=== PATIENT | male | born 1945 | race African-American/Black ===

== ENCOUNTER 2020-03-16 14:30 | Observation (INO) | payer MEDICARE, SELFPAY ==
[2020-03-16] VITALS (8 sets, daily range): BP systolic 138–179; BP diastolic 56–67; PULSE 59–82; RESP 16–19; TEMP 36.1–36.4; O2SAT 98–100; BMI 30.1
--- NOTE | ~2020-03-16 | MR_ITS ---
EXAMINATION: MR brain/brain stem wo con DATE: 03/17/2020 07:09 INDICATION: Slurred speech. TECHNIQUE: Magnetic resonance imaging (MRI) of the brain and brainstem was performed without intraven ous contrast. Sequences included sagittal and axial T1-weighted SE, axial diffusion-weighted FS SE, a xial T2*-weighted GRE, axial T2-weighted FLAIR, and axial T2-weighted FSE. Apparent diffusion coeffic ient (ADC) maps were created. COMPARISON: Head CT and brain CT angiogram dated 03/16/2020 FINDINGS: There are no areas of restricted diffusion to suggest acute infarction. There are couple small old in farcts in the hardy, tiny on the right and small on the left. A few additional small old lacunar infar cts in the left lentiform nucleus and the right frontal and left parietal centrum semiovale. No intra cranial hemorrhage or abnormal intracranial mass lesion. There are scattered areas of nonspecific inc reased T2-weighted signal intensity in the cerebral white matter, predominantly involving the deep an d periventricular white matter which is within normal limits for age. There are no intraparenchymal s ignal abnormalities seen on the other pulse sequences. Symmetric prominence of the sulci and ventricl es consistent with mild age-appropriate diffuse cerebral volume loss. There are no abnormal extra-axi al fluid collections. Absent flow void in the right vertebral artery on T2-weighted sequences consist ent with thrombosis or slow flow. Correlation with prior CT angiogram demonstrates a high-grade steno sis of the right vertebral artery distal to the takeoff of the right inferior cerebellar artery with only a hairline contrast opacified lumen. Flow voids are seen in the remaining large intracranial art eries. Again noted is some plaque in the supraclinoid portion of the right internal carotid artery. V isualized orbits and soft tissues are unremarkable. IMPRESSION: 1. No acute infarct or other acute intracranial process. 2. Small old infarcts in the hardy, left basal ganglia and bilateral centrum semiovale. 3. Age-related changes including mild volume loss and scattered periventricular predominant nonspecif ic white matter T2 hyperintensity consistent with chronic small vessel ischemic disease. 4. Cerebral atherosclerosis with absent flow void in the right vertebral artery consistent with the h igh-grade stenosis evident on prior CT angiogram. Reviewed, dictated and finalized at location A. IMPRESSION: 1. No acute infarct or other acute intracranial process. 2. Small old infarcts in the hardy, left basal ganglia and bilateral centrum irma iovale. 3. Age-related changes including mild volume loss and scattered periventricular predominant nonspecific white matter T2 hyperintensity consistent with chronic small vessel ischemic disease. 4. Cerebral atherosclerosis with absent flow void in the right vertebral artery consistent with the high-grade stenosis evident on prior CT angiogram.
--- NOTE | ~2020-03-16 | CT_ITS ---
EXAMINATION: CTA BRAIN/CAROTID DATE: 03/16/2020 14:55 INDICATION: Slurred speech. Stroke protocol. TECHNIQUE: Computed tomographic angiography (CTA) of the head and neck was performed with 100 mL Omni paque-350 intravenous contrast. Multiplanar reconstructions and maximum intensity projection 3D-recon structions of the carotid arteries and of the intracranial arteries were created by the technologist on a separate workstation. Precontrast CT of the head was also obtained. Automated exposure control and iterative reconstruction technique were employed.The dose-length product was 1797.49 mGy-cm. COMPARISON: None. FINDINGS: Carotid arteries: Atherosclerotic calcifications without hemodynamically significant stenosis along the normal caliber aortic arch. There is 40% stenosis of the right carotid bulb relative to normal distal artery lumen d iameter (NASCET criteria). There is 40% stenosis of the left carotid bulb relative to normal distal a rtery lumen diameter. High-grade stenosis at the origin of the right vertebral artery. Left vertebral artery is dominant. Head CT: Small old lacunar infarct at the left hardy. No acute intracranial hemorrhage, acute infarction or abn ormal extra axial fluid collection. There is moderate scattered white matter hypoattenuation consiste nt with chronic small vessel ischemic disease. Symmetric prominence of the sulci and ventricles consi stent with mild age-appropriate diffuse cerebral volume loss. Ventricles are normal and symmetric. No mass/mass effect. Mucosal thickening with partial opacification of a left ethmoid air cell. The orbi ts and mastoid air cells are normal. Intracranial calcified cerebral atherosclerosis is noted at the carotid siphons and along the intracranial right vertebral artery. Intracranial arteries Left vertebral artery is dominant. There is high-grade stenosis of the right vertebral artery distal to the takeoff of the right inferior cerebellar artery. There is no hemodynamically significant steno sis in the left vertebral or basilar arteries. There is 60% stenosis at the lacerum segment of the le ft internal carotid artery and and 40% stenosis at the supraclinoid segment of the right internal car otid artery. There are no aneurysms identified. Both A1 and P1 segments are patent. There is a paten t anterior cerebral communicating artery. Cerebral arterial arborization appears symmetric. IMPRESSION: 1. Small old left pontine infarct. No acute intracranial process. Dr. Palomino discussed these findin gs with Dr. Haas at 3:02 PM. 2. 40% stenosis of the of both the right and left carotid bulbs relative to normal distal artery lume n diameter (NASCET criteria). 3. High-grade stenoses at the proximal extracranial right vertebral artery and distal intracranial po rtion of the right vertebral artery. 4. 40% stenosis of the supraclinoid segment of the right internal carotid artery and 60% stenosis at the lacerum segment of the left internal carotid artery. Reviewed, dictated and finalized at location A. IMPRESSION: 1. Small old left pontine infarct. No acute intracranial process. Dr. Palomino discussed these findings with Dr. Haas at 3:02 PM. 2. 40% stenosis of the of both the right and left carotid bulbs relative to nor mal distal artery lumen diameter (NASCET criteria). 3. High-grade stenoses at the proximal extracranial right vertebral artery and distal intracranial portion of the right vertebral artery. 4. 40% stenosis of the supraclinoid segment of the right internal carotid arter y and 60% stenosis at the lacerum segment of the left internal carotid artery.
--- NOTE | 2020-03-16 15:22 | ED.NEUROSD ---
HPI - Neuro Symptoms/Deficit General Chief Complaint: Suspected CVA Stated Complaint: POSS CVA Time Seen by Provider: 03/16/20 14:31 Source: patient and family History of Present Illness HPI Narrative: Patient is brought in by EMS for slurred speech, right facial droop and difficulty with eating. states the patient appeared at baseline around 9:00 AM this morning. They went to [facility] and she noticed he has slurred speech, right facial droop. He took a long time to eat a sandwich. Patient has previous stroke and right hemiparesis. However, states that all these symptoms are new. There is no alleviating or exacerbating factor. Patient states that he feels fine and has no additional complaint. Related Data Home Medications Medication Instructions Recorded Confirmed allopurinol 03/16/20 amiodarone 200 mg 03/16/20 amlodipine 03/16/20 apixaban [Eliquis] mg 03/16/20 furosemide 03/16/20 metoprolol succinate PO 03/16/20 Allergies Allergy/AdvReac Type Severity Reaction Status Date / Time No Known Allergies Allergy Verified 03/16/20 16:28 Review of Systems Constitutional: Constitutional: Denies chills, Denies fever(s), Denies headache(s) and Denies weakness Eyes: Eyes: Denies blurry vision ENT: Denies headache(s) and Denies neck pain Cardiovascular: Cardiovascular: Denies chest pain and Denies dyspnea Respiratory: Respiratory: Denies cough and Denies dyspnea Gastrointestinal: Gastrointestinal: Denies abdominal pain, Denies diarrhea, Denies nausea and Denies vomiting Genitourinary: Genitourinary: Denies hematuria and Denies dysuria Musculoskeletal: Musculoskeletal: Denies back pain and Denies neck pain Neurologic: Reports as per HPI, Denies headache(s), Reports focal weakness (chronic right sided weakness) and Denies weakness Comments: +facial droop and slurred speech [facility] Family History Family History (Updated 03/16/20 @ 19:01 by Cielo Johnson RN) Father Acute myocardial infarction Congestive heart failure Diabetes mellitus Hypertension Sibling Acute myocardial infarction Hypertension Sibling Diabetes mellitus Hypertension Sibling Diabetes mellitus Hypertension Sibling Hypertension Sibling Hypertension Sibling Hypertension Mother Hypertension Social History Social History Smoking packs per day: 1 Smoking cigarettes per day: 20.0 Years smoked: 20 Smoking pack-years: 20.00 Smoking status: Former smoker Tobacco type: cigarettes Alcohol intake: former Substance use: never Spiritual care concerns: No Exam Const: General: no acute distress and well developed Orientation/consciousness: oriented to person, oriented to place, oriented to time and patient oriented x3 HENMT: Head: normocephalic Ears: external ears normal General nose exam: Normal external nose present Eyes: General: appearance normal, both eyes and all related structures Conjunctivae: conjunctivae normal Neck: Neck: normal visual inspection and full ROM Chest: Chest palpation & inspection: normal inspection of the chest and no tenderness Resp: Effort & Inspection: normal respiratory effort Auscultation: clear to auscultation bilaterally Cardio: Rate: regular rate Rhythm: abnormal rhythm irregularly irregular GI: GI Palp: No abdominal tenderness and Yes Soft to palpation Skin: General skin exam: normal color and turgor normal Neuro: General: oriented to person, oriented to place, oriented to time and patient oriented x3 Cranial nerves: Yes Other cranial nerve findings present (mild right facial droop) Cognition (Neuro): normal cognition Speech: dysarthria Motor exam (neuro): Other motor observations present (right sided weakness) Sensory Exam: normal sensation Coordination: betgiv-ic-axvg test normal Extrem: General: full ROM and no pedal edema Other: brace on right leg Psych: Appearance: grossly normal
--- NOTE | 2020-03-16 15:23 | ECG_ITS ---
Measurements Intervals [place] Rate: 69 P: 53 HI: 209 QRS: -52 QRSD: 114 T: 53 QT: 414 QTc: 446 Interpretive Statements SINUS RHYTHM ATRIAL PREMATURE COMPLEXES BORDERLINE AV CONDUCTION DELAY LEFT ANTERIOR FASCICULAR BLOCK LEFT VENTRICULAR HYPERTROPHY AND ST-T CHANGE BORDERLINE T WAVE ABNORMALITY- ANTEROLAT/INF LEADS BASELINE ARTIFACT- I, II, AVR, AVL, AVF, V1-V6 ABNORMAL ECG Electronically Signed On 03-16-2020 18:57:27 CDT by Mik Acuña D.O.
[2020-03-16 16:01] LABS: Basophils Percent Auto 0.4 % (0.2-1.2); Eosinophils Absolute Auto 0.1 K/mm3 (0-0.3); Eosinophils Percent Auto 1.3 % (0-4.4); Hemoglobin 8.8 g/dL (14.0-18.0); Immature Granulocyte Absolute 0.03 K/mm3 (0.00-0.031); Immature Granulocyte Percent A 0.6 % (0-0.5); Lymphocytes Absolute Auto 0.95 K/mm3 (0.9-3.2); Mean Corpuscular HGB Conc 31.4 g/dl (32-36); Mean Corpuscular Hemoglobin 27.1 pg (26-34); Mean Corpuscular Volume 86.2 fl (80-100); Monocytes Absolute Auto 0.4 K/mm3 (0.1-0.6); Monocytes Percent Auto 7.6 % (2.6-8.5); Neutrophils Absolute Auto 3.3 K/mm3 (1.3-6.7); Neutrophils Percent Auto 70.1 % (45.5-73.1); Platelet Count Result 218 k/mm3 (150-375); Red Blood Count 3.25 M/mm3 (4.6-6.20); Red Cell Distribution Width 15.3 % (11.5-14.5); White Blood Count 4.7 K/mm3 (4.5-10.0)
[2020-03-16 16:12] LABS: INR 1.4; Prothrombin Time 17.2 Seconds (11.1-14.7)
[2020-03-16 16:13] LABS: Partial Thromboplastin Time 35.2 SECONDS (22.3-36.8)
[2020-03-16 16:14] LABS: Alanine Aminotransferase 20 U/L (4-50); Albumin Level 3.3 g/dL (3.5-5.1); Alkaline Phosphatase 97 U/L (38-126); Aspartate Amino Transferase 22 U/L (17-59); Bilirubin,Total 0.4 mg/dL (0.2-1.3); Blood Urea Nitrogen 40 mg/dL (9-20); Calcium 8.4 mg/dL (8.4-10.2); Carbon Dioxide 17 mmol/L (22-30); Chloride 113 mmol/L (98-107); Estimated Glomerular Filt Rate 36; Glucose 197 mg/dL (75-110); Potassium 3.7 mmol/L (3.4-5.0); Sodium 140 mmol/L (137-145)
[2020-03-16] MEDS: SODIUM CHLORIDE 0.9% IV 1,000 ML 999 ML IV CONT (16:21)
--- NOTE | 2020-03-16 18:38 | PC.NURSE ---
This patient, Bhavana West, was admitted to Medical Room 250-. Patient/family oriented to hospital policies and general routines including ID bracelet, bed and alarms, visiting hours, pain management, procedures, bathroom and other care routines, personal items, smoking policy, room service/diet, and visiting hours. Valuables list has been completed. Information on how to activate the Rapid Response Team has been discussed. Patient/Family are encouraged to report perceived risks to care and to ask questions if they do not understand what they are told or what they should do.
[2020-03-16 19:03] LABS: Glucose Point of Care 117 (65-105)
[2020-03-17] VITALS (7 sets, daily range): BP systolic 168–186; BP diastolic 76–78; PULSE 65–86; RESP 16–20; TEMP 36.1–36.2; O2SAT 100
[2020-03-17] MEDS: allopurinoL 300 MG TABLET PO (09:42)
[2020-03-17] MEDS: ASPIRIN 81 MG ENTERIC TABLET PO (09:42)
[2020-03-17] MEDS: AMIODARONE HCL 200 MG TABLET PO (09:42)
[2020-03-17] MEDS: APIXABAN 5 MG TABLET PO (09:42)
[2020-03-17 10:09] LABS: Blood Urea Nitrogen 25 mg/dL (9-20); Calcium 8.8 mg/dL (8.4-10.2); Carbon Dioxide 19 mmol/L (22-30); Chloride 114 mmol/L (98-107); Estimated CRCL calculation 37 ml/min; Estimated Glomerular Filt Rate 48; Glucose 175 mg/dL (75-110); Potassium 4.5 mmol/L (3.4-5.0); Sodium 137 mmol/L (137-145)
[2020-03-17 10:14] LABS: Transferrin 228 mg/dL (206-381)
[2020-03-17 10:47] LABS: Iron 38 ug/dL (49-181)
[2020-03-17 10:56] LABS: Percent Iron Saturation 12 % (20-50)
--- NOTE | 2020-03-17 11:02 | STIPEVAL ---
Thank you for referring Bhavana West to [facility]. Please review, sign, date and return this plan of care JULIA. I agree with and certify that the following plan of care is medically necessary. Referring Physician Date Admitting Provider: Alverto Rodriguez MD Attending Provider: Raya Maldonado PA-C Referring Provider: PEYMAN Inpatient Evaluation Start: 03/17/20 10:45 Freq: Status: Active Protocol: Document 03/17/20 10:46 LYUDMILA (Rec: 03/17/20 11:02 LYUDMILA [id number]) Therapy Assessment Status Assessment Status Assessment Status Evaluation Pain Assessment Timing of Pain Assessment Timing of Pain Assessment Assessment Pain Scale Pain Scale Used Quiles-Martinez (FACES) Quiles-Martinez Quiles-Martinez Pain Scale No Pain Pain Score Pain Score No Pain: Quiles Martinez Language Evaluation Auditory Comprehension Simple Yes/No Questions (% Accuracy (0- 100 100)) Moderate Yes/No Questions (% Accuracy (0 90 -100)) Auditory Comprehension One-Step 100 Directives (% Accuracy (0-100)) Auditory Comprehension of Two-Step 80 Directives (% Accuracy (0-100)) Response Latency Mild Deficits Overall Auditory Comprehension Ability No Impairments Reading Comprehension Comprehension: 3-4 Words (% Accuracy (0- 100 100)) Comprehension: 5-7 Words (% Accuracy (0- 100 100)) Comprehension of Functional Reading No Impairments Materials Response Latency Mild Deficits Verbal Expression Automatic Speech Ability No Impairments [place] Speech No Impairments Single Word Imitation (% Accuracy (0-100 100 )) Phrase Imitation (% Accuracy (0-100)) 100 Open Ended Cued Speech (% Accuracy (0- 100 100)) Confrontational Naming (% Accuracy (0- 100 100)) Sentence Formation in Spontaneous Mild Deficits Conversation Connected Speech Mild Deficits Response Latency Mild Deficits Overall Verbal Expression Ability Mild Deficits Dysarthria Evaluation Oral-Motor Assessment Lip Structure Asymmetrical Lip Color [place] Lip Moisture Moist Lip Protrusion Direction WNL,Range WNL Lip Lateralization Direction WNL,Range WNL Lip Compression Direction WNL,Range WNL Intelligibility Conversational Level Speech 90 Intelligibility (%) Intelligibility Comments mildly slurred speech but understood more than 90% of the time for this evaluation Speech Therapy Teaching Adult Spe
--- NOTE | 2020-03-17 11:10 | PM.SD ---
Same Day Admit/Disch: HPI History of Present Illness Chief complaint: Slurred speech Narrative: Bhavana West is a 74 year old male with a past medical history of a stroke in 2003, TIAs, chronic kidney disease, and AFib who presented emergency room for left-sided facial droop and worsened slurred speech. The patient was unable to give me much accurate information but I called his , Riri, who said that they were at [employer] and the patient started having a left-sided facial droop which is opposite of his chronic right-sided facial droop. With this, the patient was slurring his speech worse than normal and was taking a longer amount of time to do things. She was worried about another stroke show he was brought to emergency room. The patient states he does not think he has been any different and attributes his worsened slurred speech to his mask. He is not having any issues with swallowing or choking. He said he had a stroke in 2003 and has been weak on the right side since then. He states he walks with a cane at home and does not have any recent history of falls. At the time my exam he denies any numbness, tingling, double vision, chest pain, shortness of breath, nausea, dysuria, vomiting or diarrhea. He says he has not missed any of his medications and takes his Eliquis routinely. He said he had some left hand tingling earlier this stay which has resolved. His says that he has utilized therapy on and off since his initial stroke. He usually sees Dr. Henao for his cardiology needs [facility] Past Medical History Medical History (Updated 03/17/20 @ 14:16 by Raya Maldonado PA-C) Anemia of chronic disease Atrial fibrillation CKD (chronic kidney disease) Hypertension Surgical History Surgical History (Updated 03/17/20 @ 14:17 by Raya Maldonado PA-C) H/O right knee surgery Family History Family History Father Acute myocardial infarction Congestive heart failure Diabetes mellitus Hypertension Sibling Acute myocardial infarction Hypertension Sibling Diabetes mellitus Hypertension Sibling Diabetes mellitus Hypertension Sibling Hypertension Sibling Hypertension Sibling Hypertension Mother Hypertension Social History Social History (Updated 03/17/20 @ 14:18 by Raya Maldonado PA-C) Social History: Patient does not smoke but did previously smoke a pack per day for 20 years. He lives at home with his Riri who is his surrogate decision maker. He does not drink alcohol Smoking packs per day: 1 Smoking cigarettes per day: 20.0 Years smoked: 20 Smoking pack-years: 20.00 Smoking status: Former smoker Tobacco type: cigarettes Alcohol intake: former Substance use: never Spiritual care concerns: No Same Day Admit/Disch: Med Pre-admit Medications Home Medications Medication Instructions Recorded Confirmed Type Eliquis 5 mg PO BID 03/16/20 03/16/20 History Entresto 1 tablet PO BID 03/16/20 03/16/20 History albuterol sulfate 1 inh INHALATION Q4H PRN 03/16/20 03/16/20 History allopurinol 300 mg PO DAILY 03/16/20 03/16/20 History amiodarone 200 mg PO DAILY 03/16/20 03/16/20 History amlodipine 10 mg PO DAILY 03/16/20 03/16/20 History cholecalciferol (vitamin D3) 2,000 units PO DAILY 03/16/20 03/16/20 History furosemide 40 mg PO DAILY 03/16/20 03/16/20 History aspirin 81 mg PO QAM #30 tablet 03/17/20 Rx atorvastatin 20 mg PO DAILY #30 tablet 03/17/20 Rx metoprolol succinate 50 mg PO DAILY #30 tablet 03/17/20 Rx Exam Narrative: Exam Narrative: General:Well developed well nourished patient resting comfortably in bed in no acute distress HEENT: Normocephalic, atraumatic, right-sided facial droop, PERRL, Sclerae anicteric, oral mucosa moist. Neck: Supple Resp: CTA Heart: RRR with no murmurs Abd: Soft, nontender. No pain to palpation. Positive bowel sounds Skin: Warm and dry Extremities: No swelling, darci
[2020-03-17 11:13] LABS: Folic Acid 6.2 ng/mL (2.76->20)
[2020-03-17 11:25] LABS: Hemoglobin A1C 6.1 % (<5.7)
--- NOTE | 2020-03-17 11:59 | CONS_ITS ---
DATE OF CONSULTATION: 03/16/2020 HISTORY OF PRESENT ILLNESS: A 74-year-old has been admitted to [facility] through the emergency room where he was brought by the EMS for the complaint of slurred speech with right facial droop and difficulties in eating. As per the information available from the patient's , he was at baseline around 09:00 a.m. in the morning. He went to [email or web address] and noted that his speech was slurred and the right side of the face was drooping. He took a long time to finish a sandwich. The patient has had the previous stroke with resultant right hemiparesis, but as per the , this particular symptomatology was new for him. MEDICATIONS: The patient has been takin. Allopurinol. 2. Amiodarone 200 mg daily. 3. Amlodipine. 4. Apixaban. 5. Furosemide. 6. Metoprolol succinate. ALLERGIES: HE IS NOT ALLERGIC TO ANY MEDICATION. ? He has no history of any other generalized symptomatology in the past. The patient has had the acute myocardial infarct in the past. The patient has had the history of 20 years of smoking with far being former smoker. Former alcohol intaker, never substance abuser. PHYSICAL EXAMINATION: VITAL SIGNS: Evaluation up until now documented him to be having pulse of 60, respiration 19, blood pressure 145/62, pulse ox 100%, temperature 36.4. GENERAL: Revealed him to be awake, alert, in no obvious acute distress. HEENT: Head normocephalic with no cranial bruit. Ear, nose, throat examination normal. NECK: Supple with no cervical bruit. No thyromegaly. No lymphadenopathy. HEART: Regular. LUNGS: Clear. ABDOMEN: Soft. NEUROLOGICAL: He is awake, alert, and oriented x3. Pupils round, regular. Villar[place] of vision full. Extraocular movements full. Face asymmetrical. Tongue midline. Uvula midline. Normal examination revealed him to have the right hemiparesis with hyperreflexia. Downgoing plantar response on the left side. Right side upgoing. No evidence of gross cerebellar deficit. LABORATORY DATA: WBC 4.7, hemoglobin 8.8, platelet count 218. Basic metabolic panel with sodium 140, potassium 3.7, chloride 113, BUN 40, creatinine 2.20, and glucose of 197. Evaluation otherwise up until now included the MRI of the brain, which has documented no acute infarct or other acute intracranial processes. A small old infarcts in the hardy, left basal ganglia and bilateral centrum semiovale with volume loss and scattered periventricular predominant nonspecific white matter disease with absent flow in the right vertebral with high-grade stenosis on the prior CT angiogram. The patient did have the head and neck CTA, which documented a small old left pontine infarct again. 40% stenosis of both the right and left carotid bulb. High-grade stenosis at the proximal extracranial right vertebral artery and distal intracranial portion of the right vertebral artery with 40% stenosis of the supraclinoid segment of the right internal carotid that is 60% stenosis at the lacerum segment of the left internal carotid artery. His hemoglobin is 8.8. INR 1.4. APTT 17.2. Basic metabolic panel is normal except CO2 is running 17, BUN 40, creatinine 2.20. At this stage, the patient is receiving allopurinol 300 mg daily, apixaban 5 mg twice a day, furosemide 40 mg daily, metoprolol 100 mg daily, aspirin was started 81 mg daily in the ER, which has been already stopped, vitamin D 2000 units daily and amiodarone 200 mg daily. Treatment will be continued as such. Considering that the patient has had the new stroke, it could have resulted in the present symptomatology, but again the strokes are subcortical. Even though he has vertebral stenosis, he is already on the anticoagulant. No further intervention will be necessary. Thank you very much for letting me jensen
== END 2020-03-17 15:18 | disposition home health service (06) ==
LOC: ANHED 16:47 → ANH2MED 17:01
PROVIDERS: Physician Assistant; Admitting Provider Internal Medicine; Emergency Provider Emergency Medicine; PCP Internal Medicine; Visit Provider Family Medicine
DX: G45.9 Transient cerebral ischemic attack, unspecified (principal); R47.81 Slurred speech; R29.810 Facial weakness; I69.351 Hemiplegia and hemiparesis following cerebral infarction affecting right dominant side; I25.2 Old myocardial infarction; I12.9 Hypertensive chronic kidney disease with stage 1 through stage 4 chronic kidney disease, or unspecified chronic kidney disease; I48.91 Unspecified atrial fibrillation; R73.9 Hyperglycemia, unspecified; D63.1 Anemia in chronic kidney disease; N18.9 Chronic kidney disease, unspecified; Z87.891 Personal history of nicotine dependence; Z79.01 Long term (current) use of anticoagulants
CPT/HCPCS: 36415; 70496; 70498; 70551; 80048; 80053; 82607; 82728; 82746; 83036; 83540; 83550; 84443; 84466; 85025; 85610; 85730; 92523; 93005; 96360; 97161; 97165; 99285; A9270; G0378; J7030; Q9967

== ENCOUNTER 2020-04-05 10:31 | Emergency (ER) | payer MEDICARE, SELFPAY ==
--- NOTE | ~2020-04-05 | US_ITS ---
EXAMINATION: US pelvic limited EXAM DATE: 04/05/2020 11:53 INDICATION: Hematuria. TECHNIQUE: Multiple grayscale and Doppler images of the pelvis transabdominally were obtained (by a t echnologist who performed the scan) and subsequently reviewed. There is no prior study for compariso n. FINDINGS: Bladder measures 10.9 x 5.6 x 6.6 cm, moderate to severely distended. There is no intraluminal fillin g defects/blood clot identified. No focal bladder wall thickening. IMPRESSION: 1. Moderate to severe bladder distention. Reviewed, dictated and finalized at location A.
--- NOTE | 2020-04-05 10:39 | ED.ABDPAIN ---
HPI - Abdominal Pain General Chief Complaint: Urogenital-Male <SERGE Valles Last Filed: 04/05/20 15:10> Stated Complaint: hematuria <SERGE Valles Last Filed: 04/05/20 15:10> Time Seen by Provider: 04/05/20 10:33 <SERGE Valles Last Filed: 04/05/20 15:10> Source: patient <SERGE Valles Last Filed: 04/05/20 15:10> Mode of arrival: ambulatory <SERGE Valles Last Filed: 04/05/20 15:10> Limitations: no limitations <SERGE Valles Last Filed: 04/05/20 15:10> History of Present Illness HPI narrative: Patient is a 74-year-old male who presents to emergency department for evaluation with dysuria and hematuria that began last night patient notes that he is currently on Eliquis patient notes history of prior stroke is the indication for his Eliquis patient notes burning with urination denies abdominal pain injury or trauma or recent illness. Patient notes last night he developed hematuria and has since had difficulty with urination. Patient denies any fever chills nausea vomiting. Patient presents per private vehicle in no distress. Patient notes he is followed by urology out of [facility] <SERGE Valles Last Filed: 04/05/20 15:10> Related Data Home Medications: Home Medications Medication Instructions Recorded Confirmed Eliquis 5 mg PO BID 03/16/20 03/16/20 Entresto 1 tablet PO BID 03/16/20 03/16/20 allopurinol 300 mg PO DAILY 03/16/20 03/16/20 amiodarone 200 mg PO DAILY #0 03/16/20 03/16/20 amlodipine 10 mg PO DAILY 03/16/20 03/16/20 <SERGE Valles Last Filed: 04/05/20 15:10> Allergies/Adverse Reactions: Allergies Allergy/AdvReac Type Severity Reaction Status Date / Time No Known Allergies Allergy Verified 04/05/20 10:42 <SERGE Valles Last Filed: 04/05/20 15:10> Review of Systems Review of Systems: All systems reviewed & are unremarkable except as noted in HPI and below <Ron Pulido PA-C - Last Filed: 04/05/20 15:10> PMFSH Past Medical History Medical History: Medical History Anemia of chronic disease Atrial fibrillation CKD (chronic kidney disease) Hypertension <Ron Pulido PA-C - Last Filed: 04/05/20 15:10> Surgical History Surgical History: Surgical History H/O right knee surgery <Ron Pulido PA-C - Last Filed: 04/05/20 15:10> Social History Social History: Social History Social History: Patient does not smoke but did previously smoke a pack per day for 20 years. He lives at home with his Riri who is his surrogate decision maker. He does not drink alcohol Smoking packs per day: 1 Smoking cigarettes per day: 20.0 Years smoked: 20 Smoking pack-years: 20.00 Smoking status: Former smoker Tobacco type: cigarettes Alcohol intake: former Substance use: never Gender identity (if verbalized by the patient): Male Spiritual care concerns: No <Ron Pulido PA-C - Last Filed: 04/05/20 15:10> Exam Narrative: Exam Narrative: GENERAL: Well-appearing, well-nourished, and in no acute distress. HEAD: Normocephalic, atraumatic. EYES: PERRLA and EOMI. ENT: Nares clear, no rhinorrhea or epistaxis. Mucous membranes moist. Oropharynx without tonsillar hypertrophy exudate or other lesions. NECK: Supple. No adenopathy or masses. CHEST: Clear to auscultation. No respiratory distress. No wheezes rales or rhonchi HEART: Regular rate and rhythm. No murmur heard. Normal peripheral pulses. ABDOMEN: Soft, nontender, nondistended EXTREMITIES: Normal range of motion. No edema. SKIN: Warm, dry, no rash. NEURO: Normal speech. alert and oriented x3. PSYCH: Normal mood and affect. <Ron Pulido PA-C - Last Filed: 04/05/20 15:10>
[2020-04-05 10:44] VITALS: BP 186/99; PULSE 72; RESP 20; TEMP 36.8; O2SAT 100
[2020-04-05 10:59] LABS: Basophils Percent Auto 0.2 % (0.2-1.2); Eosinophils Percent Auto 0.6 % (0-4.4); Hematocrit 29.2 % (42.0-52.0); Hemoglobin 9.1 g/dL (14.0-18.0); Immature Granulocyte Absolute 0.04 K/mm3 (0.00-0.031); Immature Granulocyte Percent A 0.9 % (0-0.5); Lymphocytes Absolute Auto 0.69 K/mm3 (0.9-3.2); Lymphocytes Percent Auto 14.7 % (18.3-44.2); Mean Corpuscular HGB Conc 31.2 g/dl (32-36); Mean Corpuscular Hemoglobin 26.6 pg (26-34); Mean Corpuscular Volume 85.4 fl (80-100); Mean Platelet Volume 11.3 fl (7.4-10.4); Monocytes Absolute Auto 0.2 K/mm3 (0.1-0.6); Monocytes Percent Auto 5.1 % (2.6-8.5); Neutrophils Absolute Auto 3.7 K/mm3 (1.3-6.7); Neutrophils Percent Auto 78.5 % (45.5-73.1); Platelet Count Result 212 k/mm3 (150-375); Red Blood Count 3.42 M/mm3 (4.6-6.20); Red Cell Distribution Width 15.1 % (11.5-14.5); White Blood Count 4.7 K/mm3 (4.5-10.0)
[2020-04-05 11:09] LABS: Partial Thromboplastin Time 38.2 SECONDS (22.3-36.8)
[2020-04-05 11:19] LABS: Alanine Aminotransferase 23 U/L (4-50); Alkaline Phosphatase 126 U/L (38-126); Aspartate Amino Transferase 27 U/L (17-59); Bilirubin,Total 0.9 mg/dL (0.2-1.3); Blood Urea Nitrogen 25 mg/dL (9-20); Calcium 9.3 mg/dL (8.4-10.2); Carbon Dioxide 24 mmol/L (22-30); Chloride 107 mmol/L (98-107); Estimated CRCL calculation 42 ml/min; Estimated Glomerular Filt Rate 48; Glucose 175 mg/dL (75-110); Potassium 4.3 mmol/L (3.4-5.0); Sodium 139 mmol/L (137-145)
--- NOTE | 2020-04-05 11:36 | PC.NURSE ---
Attempted to place 3-way catheter with no success. PA at bedside; attempted placement with no success. 14 Coude attempted; no success.
[2020-04-05 11:52] LABS: Add Urine Microscopic? YES; Appearance Urine Cloudy (Clear); Bacteria Urine Trace /hpf; Bilirubin Urine Negative (Negative); Blood Urine 3+ (Negative); Color Urine Light Red (Yellow); Glucose Urine UA Negative (Negative); Ketones Urine Negative (Negative); Leukocyte Esterase Ur Trace LEU/UL (Negative); Nitrate Urine Negative (Negative); Protein Urine 2+ mg/dL (Negative); RBC Urine >75 /hpf (0-2); Specific Grav Ur 1.015 (1.001-1.035); Squamous Epithelial Cell Urine Rare /hpf (Few); Urobilinogen Urine Negative mg/dL (<2.0); WBC Urine 31-50 /hpf
[2020-04-05] MEDS: LIDOCAINE HCL 2% GEL UROJET 10 ML PKG (13:08)
[2020-04-05 15:34] VITALS: BP 166/70; PULSE 65; RESP 21; O2SAT 99
--- NOTE | 2020-04-05 22:06 | WPDURCON ---
Assessment and Plan Assessment and plan (1) Acute urinary retention: Code(s): R33.8 - Other retention of urine Status: Acute (2) Prostate cancer: Code(s): C61 - Malignant neoplasm of prostate Status: Acute Additional Plan After lidocaine jelly administerd after patient was prepped and draped in a sterile fashion, an 18Fr silastic webber was inserted into the bladder with some disomfort. It drained 500ml of clear urine with no evidence of blood. 1) Discharge home with a webber and told to followup with [facility] 2) will start taking Flomax daily 3) Will also take abx and AZO Urology Consult Note HPI Date Seen: 04/05/20 Consult Narrative Narrative: Bhavana West is a 74 year old male who presented to [facility] ER today with complaints of difficulty with voiding. PVR/Bladder US did note reveal any mass or blood clot but volume of urine measured ~400ml. ER staff made [address] webber but were unsuccessful. Patient has a history of prostate cancer s/p radiation and continues with Eligard injections. PSA was <0.1 just a few weeks ago. He was told to take Flomax by Dr Zepeda's [employer] but last time he took it was 2 weeks ago. He has had increased frequency and nocturia for the past few days. Denies hematuria. Review of Systems Review of Systems: All systems reviewed & are unremarkable except as noted in HPI and below (HPI) [facility] Past Medical History Medical History Anemia of chronic disease Atrial fibrillation CKD (chronic kidney disease) Hypertension Surgical History Surgical History H/O right knee surgery Social History Social History Social History: Patient does not smoke but did previously smoke a pack per day for 20 years. He lives at home with his Riri who is his surrogate decision maker. He does not drink alcohol Smoking packs per day: 1 Smoking cigarettes per day: 20.0 Years smoked: 20 Smoking pack-years: 20.00 Smoking status: Former smoker Tobacco type: cigarettes Alcohol intake: former Substance use: never Gender identity (if verbalized by the patient): Male Spiritual care concerns: No Meds Home Medications and Allergies Home Medications Medication Instructions Recorded Confirmed Type Eliquis 5 mg PO BID 03/16/20 03/16/20 History Entresto 1 tablet PO BID 03/16/20 03/16/20 History allopurinol 300 mg PO DAILY 03/16/20 03/16/20 History amiodarone 200 mg PO DAILY #0 03/16/20 03/16/20 History amlodipine 10 mg PO DAILY 03/16/20 03/16/20 History aspirin 81 mg PO QAM #30 tablet 03/17/20 Rx atorvastatin 20 mg PO DAILY #30 tablet 03/17/20 Rx metoprolol succinate 50 mg PO DAILY #30 tablet 03/17/20 Rx cephalexin [Keflex] 500 mg PO Q8H 10 Days #30 cap 04/05/20 Rx phenazopyridine [Pyridium] 200 mg PO TID PRN #7 tablet 04/05/20 Rx Allergies Allergy/AdvReac Type Severity Reaction Status Date / Time No Known Allergies Allergy Verified 04/05/20 10:42 Vital Signs Vital Signs - 24 hr 04/05/20 10:44 04/05/20 15:34 Temperature 36.8 C Pulse Rate 72 65 Respiratory Rate 20 21 H Blood Pressure 186/99 H 166/70 H Pulse Oximetry 100 99 Exam Const: General: no acute distress Eyes: General: appearance normal, both eyes and all related structures Neck: Neck: no JVD Resp: Effort & Inspection: normal respiratory effort : Male General Exam: Yes normal external exam Skin: General skin exam: normal color and no rashes or lesions noted Neuro: Speech: normal speech Results Labs CBC & Chem 7: 04/05/20 10:53 04/05/20 10:53 Labs: Short CBC 04/05/20 Range/Units 10:53 WBC 4.7 (4.5-10.0) K/mm3 Hgb 9.1 L (14.0-18.0) g/dL Hct 29.2 L (42.0-52.0) % Plt Count 212 (150-375) k/mm3 [facility] 04/05/20 10:53 Sodium 139
== END 2020-04-05 15:35 | disposition home or self-care (01) ==
PROVIDERS: Emergency Medicine Emergency Medical Services; Emergency Provider Emergency Medicine
DX: N39.0 Urinary tract infection, site not specified (principal); R33.9 Retention of urine, unspecified; Z85.46 Personal history of malignant neoplasm of prostate; I48.91 Unspecified atrial fibrillation; Z79.01 Long term (current) use of anticoagulants; N18.9 Chronic kidney disease, unspecified; D63.1 Anemia in chronic kidney disease; I12.9 Hypertensive chronic kidney disease with stage 1 through stage 4 chronic kidney disease, or unspecified chronic kidney disease; Z87.891 Personal history of nicotine dependence; Z92.3 Personal history of irradiation
CPT/HCPCS: 36415; 51700; 76857; 80053; 81001; 85025; 85610; 85730; 87086; 96365; 96367; 96375; 99284; J0131; J0696; J3360